=== PATIENT | male | born 1945 | race Caucasian/White ===

== ENCOUNTER → 2017-06-24 | Outpatient (CLI) | payer OTHER | LOC: CIMAGING 10:11 | DX: Z01.818 Encounter for other preprocedural examination (principal); M21.41 Flat foot [pes planus] (acquired), right foot; M21.42 Flat foot [pes planus] (acquired), left foot | CPT/HCPCS: 71020-PO ==

== ENCOUNTER → 2018-04-01 | Outpatient (CLI) | payer OTHER | LOC: CIMAGING 18:04 | PROVIDERS: ATTEND Family Medicine | DX: R06.89 Other abnormalities of breathing (principal); J98.11 Atelectasis; I51.7 Cardiomegaly | CPT/HCPCS: 71046-PO ==